=== PATIENT | male | born 1985 | race African-American/Black ===

== ENCOUNTER 2023-03-09 11:21 | Emergency (ER) | payer OTHER ==
[2023-03-09] MEDS ORDERED: METOCLOPRAMIDE HCL INJECTION 10 MG/2 ML VIAL IVPUSH ONE (12:17)
[2023-03-09] MEDS ORDERED: ACETAMINOPHEN 1000 MG/100 ML BAG IVPB ONE (12:17)
[2023-03-09] MEDS ORDERED: SODIUM CHLORIDE 0.9% 500 ML INFUS.BAG IV ONE (12:18)
[2023-03-09 14:24] VITALS: RESP 18; TEMP 98.8
[2023-03-09 15:10] LABS: EOS % 0.3 % (0-4.5); HEMATOCRIT 47.2 % (35.4-49); HEMOGLOBIN 15.5 GM/dL (11.7-16.9); LYMPH % 12.2 % (8-40); MCH 28.5 pg (25.7-33.7); MCHC 32.8 g/dl (32.0-35.9); MEAN PLT VOLUME 8.3 fl (7.5-11.1); MONO % 5.6 % (3.8-10.2); NEUT % 80.9 % (42.8-82.8); RBC 5.43 M/mm3 (4.00-5.60); RDW 15.2 % (11.9-15.9); WHITE BLOOD COUNT 8.6 K/mm3 (4.0-10.0)
[2023-03-09] MEDS ORDERED: METOCLOPRAMIDE HCL INJECTION 10 MG/2 ML VIAL ONE (15:20)
[2023-03-09] MEDS ORDERED: ACETAMINOPHEN INJECTION 100 ML IVPB ONE (15:20)
[2023-03-09 15:25] LABS: PLATELET COUNT 371 10^3/uL (134-434); POTASSIUM 4.3 mmol/L (3.5-5.1)
[2023-03-09 15:27] LABS: BLOOD UREA NITROGEN 12.4 mg/dL (7-18); CALCIUM 9.5 mg/dL (8.5-10.1)
[2023-03-09 15:28] LABS: ALBUMIN 3.9 g/dl (3.4-5.0)
[2023-03-09 15:31] LABS: CREATININE 0.8 mg/dL (0.55-1.3)
[2023-03-09 15:32] LABS: BILIRUBIN,TOTAL 0.3 mg/dL (0.2-1); TOT PROT 10.8 g/dl (6.4-8.2)
[2023-03-09] MEDS ORDERED: PROCHLORPERAZINE INJECTION 10 MG/2 ML VIAL IM ONE (18:18)
[2023-03-09] MEDS ORDERED: PROCHLORPERAZINE INJECTION 10 MG/2 ML VIAL ONE (20:02)
[2023-03-09] MEDS ORDERED: KETOROLAC TROMETHAMINE 30 MG/1 ML VIAL IM ONE (21:23)
[2023-03-09] MEDS ORDERED: KETOROLAC TROMETHAMINE 30 MG/1 ML VIAL ONE (22:06)
[2023-03-09 22:39] VITALS: BP 124/66; PULSE 51
== END 2023-03-10 06:06 | disposition home or self-care (01) ==
LOC: JER 11:21
PROC: 3E033NZ Introduction of Analgesics, Hypnotics, Sedatives into Peripheral Vein, Percutaneous Approach (ICD-10-PCS; principal; 2023-03-09)
PROC: 3E033GC Introduction of Other Therapeutic Substance into Peripheral Vein, Percutaneous Approach (ICD-10-PCS; 2023-03-09)
PROC: 3E023GC Introduction of Other Therapeutic Substance into Muscle, Percutaneous Approach (ICD-10-PCS; 2023-03-09)
DX: R51.9 Headache, unspecified (principal); H53.71 Glare sensitivity
CPT/HCPCS: 36415; 70260-TC-FY; 70450-TC; 71046-TC-FY; 74019-TC-FY; 80053; 85025; 93005; 93010; 96372; 96374; 96375; 99285-25

== ENCOUNTER 2023-03-11 00:51 | Inpatient (IN) | payer OTHER ==
[2023-03-11 01:03] VITALS: BMI 41.0
[2023-03-11] MEDS ORDERED: SODIUM CHLORIDE 1,000 ML IV STA (01:44)
[2023-03-11] MEDS ORDERED: ACETAMINOPHEN 1000 MG/100 ML BAG IVPB ONE (01:46)
[2023-03-11] MEDS ORDERED: KETOROLAC TROMETHAMINE 30 MG/1 ML VIAL IVPUSH ONE (01:46)
[2023-03-11] MEDS ORDERED: ACETAMINOPHEN INJECTION 100 ML IVPB ONE (01:48)
[2023-03-11] MEDS ORDERED: KETOROLAC TROMETHAMINE 30 MG/1 ML VIAL ONE (01:48)
[2023-03-11 03:20] LABS: POTASSIUM 5.5 mmol/L (3.5-5.1)
[2023-03-11 03:23] LABS: ALBUMIN 3.4 g/dl (3.4-5.0); BLOOD UREA NITROGEN 12.7 mg/dL (7-18); CALCIUM 9.1 mg/dL (8.5-10.1)
[2023-03-11 03:28] LABS: BILIRUBIN,TOTAL 0.5 mg/dL (0.2-1)
[2023-03-11 03:30] LABS: BASO % 0.4 % (0-2.0); EOS % 0.1 % (0-4.5); HEMATOCRIT 47.2 % (35.4-49); LYMPH % 9.6 % (8-40); MCH 28.9 pg (25.7-33.7); MCHC 33.8 g/dl (32.0-35.9); MEAN CELL VOLUME 85.5 fl (80-96); MEAN PLT VOLUME 8.5 fl (7.5-11.1); MONO % 6.6 % (3.8-10.2); NEUT % 83.3 % (42.8-82.8); PLATELET COUNT 340 10^3/uL (134-434); RBC 5.52 M/mm3 (4.00-5.60); RDW 16.2 % (11.9-15.9); WHITE BLOOD COUNT 11.2 K/mm3 (4.0-10.0)
[2023-03-11] MEDS ORDERED: METOCLOPRAMIDE HCL INJECTION 10 MG/2 ML VIAL IVPUSH ONE (05:56)
[2023-03-11] MEDS ORDERED: METOCLOPRAMIDE HCL INJECTION 10 MG/2 ML VIAL ONE (06:04)
[2023-03-11] MEDS ORDERED: DOCUSATE SODIUM 100 MG CAPSULE (FP) PO PRN (06:20)
[2023-03-11 07:20] LABS: MAGNESIUM 2.3 mg/dL (1.8-2.4)
[2023-03-11 07:24] LABS: PHOSPHOROUS 4.8 mg/dL (2.5-4.9)
[2023-03-11] MEDS ORDERED: ACETAMINOPHEN 1000 MG/100 ML BAG IVPB PRN (12:00)
[2023-03-11] MEDS ORDERED: KETOROLAC TROMETHAMINE 15 MG/ML VIAL IVPUSH PRN (12:30)
[2023-03-11] MEDS: ACETAMINOPHEN/CAFFEINE/BUTALBITAL 1 TAB PO PRN (14:25)
[2023-03-12] MEDS: ACETAMINOPHEN/CAFFEINE/BUTALBITAL 1 TAB PO PRN ×2 (05:42→15:43)
[2023-03-12 09:10] LABS: BASO % 0.7 % (0-2.0); EOS % 0.9 % (0-4.5); HEMOGLOBIN 14.4 GM/dL (11.7-16.9); LYMPH % 17.7 % (8-40); MCH 28.5 pg (25.7-33.7); MCHC 32.8 g/dl (32.0-35.9); MEAN PLT VOLUME 7.8 fl (7.5-11.1); MONO % 8.5 % (3.8-10.2); NEUT % 72.2 % (42.8-82.8); PLATELET COUNT 348 10^3/uL (134-434); RBC 5.06 M/mm3 (4.00-5.60); RDW 15.1 % (11.9-15.9); WHITE BLOOD COUNT 8.2 K/mm3 (4.0-10.0)
[2023-03-12] MEDS: LISINOPRIL 20 MG TABLET PO SCH (09:21)
[2023-03-12 09:25] LABS: POTASSIUM 3.5 mmol/L (3.5-5.1)
[2023-03-12 09:28] LABS: CALCIUM 8.8 mg/dL (8.5-10.1)
[2023-03-12 09:29] LABS: BLOOD UREA NITROGEN 13.5 mg/dL (7-18)
[2023-03-12 09:32] LABS: CREATININE 0.9 mg/dL (0.55-1.3)
[2023-03-12] MEDS ORDERED: NORTRIPTYLINE HCL 25 MG CAPSULE PO ONE (15:49)
[2023-03-12] MEDS: ATORVASTATIN CA 20 MG TABLET (FP) PO SCH (22:46)
[2023-03-12] MEDS: NORTRIPTYLINE HCL 25 MG CAPSULE PO SCH (22:51)
[2023-03-12] MEDS: ACETAMINOPHEN 325 MG TABLET (FP) PO PRN (22:51)
[2023-03-13] MEDS: LISINOPRIL 20 MG TABLET PO SCH (09:20)
[2023-03-13] MEDS: NORTRIPTYLINE HCL 25 MG CAPSULE PO SCH ×2 (09:20→21:23)
[2023-03-13] MEDS: ACETAMINOPHEN/CAFFEINE/BUTALBITAL 1 TAB PO PRN ×3 (09:21→23:08)
[2023-03-13] MEDS: ATORVASTATIN CA 20 MG TABLET (FP) PO SCH (21:23)
[2023-03-14] MEDS: ACETAMINOPHEN/CAFFEINE/BUTALBITAL 1 TAB PO PRN (08:08)
[2023-03-14] MEDS: NORTRIPTYLINE HCL 25 MG CAPSULE PO SCH ×2 (09:11→21:27)
[2023-03-14] MEDS: LISINOPRIL 20 MG TABLET PO SCH (09:11)
[2023-03-14] MEDS: ATORVASTATIN CA 20 MG TABLET (FP) PO SCH (21:26)
[2023-03-14] MEDS ORDERED: ACETAMINOPHEN/CAFFEINE/BUTALBITAL 1 TAB PO ONE (23:01)
[2023-03-15] MEDS: ACETAMINOPHEN 325 MG TABLET (FP) PO PRN ×2 (09:22→16:23)
[2023-03-15] MEDS: NORTRIPTYLINE HCL 25 MG CAPSULE PO SCH ×2 (09:23→21:15)
[2023-03-15] MEDS: LISINOPRIL 20 MG TABLET PO SCH (09:23)
[2023-03-15] MEDS: ATORVASTATIN CA 20 MG TABLET (FP) PO SCH (21:15)
[2023-03-16] MEDS: LISINOPRIL 20 MG TABLET PO SCH (09:16)
[2023-03-16] MEDS: NORTRIPTYLINE HCL 25 MG CAPSULE PO SCH ×2 (09:21→21:32)
[2023-03-16] MEDS: ACETAMINOPHEN 325 MG TABLET (FP) PO PRN (13:16)
[2023-03-16] MEDS: SUMAtriptan SUCCINATE 50 MG TABLET PO PRN (17:28)
[2023-03-16] MEDS: ATORVASTATIN CA 20 MG TABLET (FP) PO SCH (21:32)
[2023-03-17] MEDS: ACETAMINOPHEN 325 MG TABLET (FP) PO PRN ×2 (02:27→08:44)
[2023-03-17] MEDS: LISINOPRIL 20 MG TABLET PO SCH (09:15)
[2023-03-17] MEDS: NORTRIPTYLINE HCL 25 MG CAPSULE PO SCH ×2 (09:15→21:22)
[2023-03-17] MEDS: SUMAtriptan SUCCINATE 50 MG TABLET PO PRN ×2 (09:54→21:24)
[2023-03-17] MEDS ORDERED: amLODIPine BESYLATE 10 MG TABLET (FP) PO ONE (10:45)
[2023-03-17] MEDS: ATORVASTATIN CA 20 MG TABLET (FP) PO SCH (21:22)
[2023-03-18] MEDS: LISINOPRIL 20 MG TABLET PO SCH (09:22)
[2023-03-18] MEDS: NORTRIPTYLINE HCL 25 MG CAPSULE PO SCH ×2 (09:22→21:14)
[2023-03-18] MEDS: SUMAtriptan SUCCINATE 50 MG TABLET PO PRN ×2 (09:27→21:57)
[2023-03-18] MEDS: ACETAMINOPHEN 325 MG TABLET (FP) PO PRN (16:09)
[2023-03-18] MEDS: ATORVASTATIN CA 20 MG TABLET (FP) PO SCH (21:14)
[2023-03-19] MEDS: LISINOPRIL 20 MG TABLET PO SCH ×2 (06:46→09:02)
[2023-03-19] MEDS: ACETAMINOPHEN 325 MG TABLET (FP) PO PRN ×2 (06:46→17:39)
[2023-03-19] MEDS: NORTRIPTYLINE HCL 25 MG CAPSULE PO SCH ×2 (09:02→21:29)
[2023-03-19] MEDS: METOPROLOL TARTRATE 25 MG TABLET (FP) PO SCH ×2 (11:56→21:29)
[2023-03-19] MEDS: ATORVASTATIN CA 20 MG TABLET (FP) PO SCH (21:29)
[2023-03-20] MEDS: NORTRIPTYLINE HCL 25 MG CAPSULE PO SCH ×2 (10:39→21:55)
[2023-03-20] MEDS: LISINOPRIL 20 MG TABLET PO SCH (10:39)
[2023-03-20] MEDS: METOPROLOL TARTRATE 25 MG TABLET (FP) PO SCH ×2 (10:39→21:55)
[2023-03-20] MEDS: SUMAtriptan SUCCINATE 50 MG TABLET PO PRN (15:04)
[2023-03-20] MEDS: ATORVASTATIN CA 20 MG TABLET (FP) PO SCH (21:55)
[2023-03-20] MEDS: ACETAMINOPHEN 325 MG TABLET (FP) PO PRN (23:25)
[2023-03-20 23:33] VITALS: RESP 18
[2023-03-21] MEDS: NORTRIPTYLINE HCL 25 MG CAPSULE PO SCH ×2 (10:41→21:26)
[2023-03-21] MEDS: SUMAtriptan SUCCINATE 50 MG TABLET PO PRN ×2 (10:41→22:09)
[2023-03-21] MEDS: METOPROLOL TARTRATE 25 MG TABLET (FP) PO SCH ×2 (10:42→21:26)
[2023-03-21] MEDS: LISINOPRIL 20 MG TABLET PO SCH (10:42)
[2023-03-21] MEDS ORDERED: amLODIPine BESYLATE 10 MG TABLET (FP) PO ONE (12:15)
[2023-03-21] MEDS: ATORVASTATIN CA 20 MG TABLET (FP) PO SCH (21:26)
[2023-03-21] MEDS ORDERED: ACETAMINOPHEN 500 MG TABLET (FP) PO ONE (23:09)
[2023-03-22 01:52] VITALS: BP 161/97; PULSE 104; TEMP 99
[2023-03-22] MEDS ORDERED: amLODIPine BESYLATE 10 MG TABLET (FP) PO SCH (10:00)
== END 2023-03-22 02:08 | disposition short-term general hospital (02) | DRG 103 ==
LOC: JER 00:51 → JERBED 02:03 → J6S 09:17 → OBSVTOIN 03-13 13:00
PROVIDERS: ADMIT Internal Medicine; ATTEND Internal Medicine
DX: G43.509 Persistent migraine aura without cerebral infarction, not intractable, without status migrainosus (principal); Z68.41 Body mass index [BMI] 40.0-44.9, adult; G82.20 Paraplegia, unspecified; I10 Essential (primary) hypertension; G47.00 Insomnia, unspecified; Q05.9 Spina bifida, unspecified; M54.9 Dorsalgia, unspecified; E66.01 Morbid (severe) obesity due to excess calories
CPT/HCPCS: 0241U-QW; 36415; 70450-TC; 70544-TC; 70551-TC; 72050-TC-FY; 80048; 80053; 83735; 84100; 85025; 87635; 93005; 93010; 99285-25; G0378

== ENCOUNTER 2024-05-13 09:02 | Inpatient (IN) | payer OTHER ==
[2024-05-13] MEDS ORDERED: CEFTRIAXONE 1 G/50 ML PREMIX 50 ML IVPB ONE (13:12)
[2024-05-13 13:52] LABS: BASO % 0.6 % (0-2.0); EOS % 3.3 % (0-4.5); HEMATOCRIT 40.4 % (35.4-49); HEMOGLOBIN 13.6 GM/dL (11.7-16.9); LYMPH % 24.7 % (8-40); MCH 29.8 pg (25.7-33.7); MCHC 33.7 g/dl (32.0-35.9); MEAN CELL VOLUME 88.5 fl (80-96); MEAN PLT VOLUME 7.4 fl (7.5-11.1); MONO % 5.5 % (3.8-10.2); NEUT % 65.9 % (42.8-82.8); PLATELET COUNT 468 10^3/uL (134-434); RBC 4.56 M/mm3 (4.00-5.60); WHITE BLOOD COUNT 8.5 K/mm3 (4.0-10.0)
[2024-05-13 14:11] LABS: POTASSIUM 5.4 mmol/L (3.5-5.1)
[2024-05-13 14:14] LABS: ALBUMIN 3.1 g/dl (3.4-5.0); CALCIUM 9.1 mg/dL (8.5-10.1)
[2024-05-13 14:17] LABS: CREATININE 0.8 mg/dL (0.55-1.3)
[2024-05-13 14:18] LABS: BILIRUBIN,TOTAL 0.5 mg/dL (0.2-1); TOT PROT 8.8 g/dl (6.4-8.2)
[2024-05-13 14:32] LABS: ERYTHROCYTE SEDIMENTATION RATE 68 mm/hr (0-10)
[2024-05-13] MEDS: ATORVASTATIN CA 10 MG TABLET (FP) PO SCH (21:10)
[2024-05-13] MEDS: HEPARIN NA (PORCINE) 5,000 UNITS/ML 1ML VIAL SQ SCH (21:10)
[2024-05-13] MEDS: levETIRAcetam 500 MG TABLET (FP) PO SCH (21:11)
[2024-05-13] MEDS: ACETAMINOPHEN 325 MG TABLET (FP) PO PRN (21:11)
[2024-05-13] MEDS: NORTRIPTYLINE HCL 25 MG CAPSULE PO SCH (21:14)
[2024-05-14] MEDS: CEFTRIAXONE 1 G/50 ML PREMIX 50 ML IVPB SCH (09:28)
[2024-05-14] MEDS: amLODIPine BESYLATE 5 MG TABLET (FP) PO SCH (09:28)
[2024-05-14] MEDS: LISINOPRIL 20 MG TABLET PO SCH (09:28)
[2024-05-14] MEDS: COLLAGENASE CLOSTRIDIUM HIST. 30 GRAMS TUBE TP SCH (13:29)
[2024-05-16 09:20] LABS: BASO % 0.8 % (0-2.0); EOS % 2.3 % (0-4.5); HEMATOCRIT 39.1 % (35.4-49); LYMPH % 20.3 % (8-40); MCH 29.6 pg (25.7-33.7); MCHC 33.2 g/dl (32.0-35.9); MEAN CELL VOLUME 89.1 fl (80-96); MEAN PLT VOLUME 7.6 fl (7.5-11.1); NEUT % 70.6 % (42.8-82.8); PLATELET COUNT 389 10^3/uL (134-434); RBC 4.39 M/mm3 (4.00-5.60); WHITE BLOOD COUNT 7.7 K/mm3 (4.0-10.0)
[2024-05-16 09:56] LABS: POTASSIUM 4.3 mmol/L (3.5-5.1)
[2024-05-16 10:04] LABS: BLOOD UREA NITROGEN 13.4 mg/dL (7-18)
[2024-05-16 10:06] LABS: BILIRUBIN,TOTAL 0.4 mg/dL (0.2-1); TOT PROT 8.2 g/dl (6.4-8.2)
[2024-05-16 10:08] LABS: CREATININE 0.7 mg/dL (0.55-1.3)
[2024-05-16 10:10] LABS: CALCIUM 9.2 mg/dL (8.5-10.1)
[2024-05-16] MEDS ORDERED: ACETAMINOPHEN 1000 MG/100 ML BAG IVPB PRN (10:51)
[2024-05-17 10:02] LABS: BASO % 1.1 % (0-2.0); EOS % 2.9 % (0-4.5); HEMATOCRIT 37.7 % (35.4-49); HEMOGLOBIN 12.4 GM/dL (11.7-16.9); LYMPH % 26.3 % (8-40); MCH 29.8 pg (25.7-33.7); MCHC 32.9 g/dl (32.0-35.9); MEAN CELL VOLUME 90.8 fl (80-96); MEAN PLT VOLUME 7.9 fl (7.5-11.1); MONO % 7.5 % (3.8-10.2); NEUT % 62.2 % (42.8-82.8); PLATELET COUNT 337 10^3/uL (134-434); RBC 4.15 M/mm3 (4.00-5.60); RDW 13.8 % (11.9-15.9); WHITE BLOOD COUNT 7.2 K/mm3 (4.0-10.0)
[2024-05-17 11:07] LABS: POTASSIUM 4.3 mmol/L (3.5-5.1)
[2024-05-17 11:11] LABS: CALCIUM 9.2 mg/dL (8.5-10.1)
[2024-05-17 11:12] LABS: ALBUMIN 3.2 g/dl (3.4-5.0); BLOOD UREA NITROGEN 11.2 mg/dL (7-18)
[2024-05-17 11:15] LABS: CREATININE 0.7 mg/dL (0.55-1.3)
[2024-05-17 11:17] LABS: BILIRUBIN,TOTAL 0.3 mg/dL (0.2-1)
[2024-05-17 11:53] LABS: TOT PROT 8.3 g/dl (6.4-8.2)
[2024-05-17] MEDS ORDERED: BUPIVACAINE HCL/PF 0.25% (2.5MG/ML) 10 ML VIAL ONE (12:02)
[2024-05-17] MEDS ORDERED: BUPIVACAINE HCL/PF 0.5% (5MG/ML) 10 ML VIAL ONE (12:03)
[2024-05-17] MEDS ORDERED: BACITRACIN ZINC 15 GM TUBE TOPICAL OINTMENT ONE (12:03)
[2024-05-17] MEDS ORDERED: PROPOFOL 40 ML ONE (12:04)
[2024-05-17] MEDS ORDERED: MIDAZOLAM HCL 2 MG/2 ML SINGLE DOSE VIAL ONE (12:04)
[2024-05-17] MEDS ORDERED: SUCCINYLCHOLINE CHLORIDE 200 MG/10 ML SYRINGE ONE (12:08)
[2024-05-17] MEDS ORDERED: SUGAMMADEX SODIUM 200 MG/2 ML VIAL ONE ×2 (12:31→13:34)
[2024-05-17] MEDS ORDERED: ROCURONIUM BROMIDE 50 MG/5 ML VIAL ONE (12:31)
[2024-05-17] MEDS ORDERED: ONDANSETRON 4 MG/2 ML VIAL IVPUSH PRN ×2 (13:47→14:15)
[2024-05-17] MEDS: LACTATED RINGERS SOLUTION 1,000 ML IV SCH ×2 (14:04→15:06)
[2024-05-17] MEDS ORDERED: ACETAMINOPHEN 325 MG TABLET (FP) PO PRN (14:15)
[2024-05-17] MEDS: levETIRAcetam 500 MG TABLET (FP) PO SCH (21:27)
[2024-05-17] MEDS: ATORVASTATIN CA 10 MG TABLET (FP) PO SCH (21:27)
[2024-05-17] MEDS: NORTRIPTYLINE HCL 25 MG CAPSULE PO SCH (21:28)
[2024-05-18] MEDS: HEPARIN NA (PORCINE) 5,000 UNITS/ML 1ML VIAL SQ SCH (10:27)
[2024-05-18] MEDS: LISINOPRIL 20 MG TABLET PO SCH (10:28)
[2024-05-18] MEDS: amLODIPine BESYLATE 5 MG TABLET (FP) PO SCH (10:28)
[2024-05-18 10:37] VITALS: BMI 53.8
[2024-05-18] MEDS: CEFTRIAXONE 1 G/50 ML PREMIX 50 ML IVPB SCH (10:55)
[2024-05-18] MEDS: ASCORBIC ACID 500 MG TABLET (FP) PO SCH (11:27)
[2024-05-18] MEDS: MULTIVITAMINS (DAILY MVI) TABLET (FP) PO SCH (11:28)
[2024-05-18] MEDS: ZINC SULFATE 220 MG CAPSULE (FP) PO SCH (11:29)
[2024-05-18] MEDS: AMINO ACIDS/PROTEIN HYDROLYS 30 ML LIQUID.PKT PO SCH (11:29)
[2024-05-20 04:54] VITALS: RESP 20
[2024-05-21 02:04] VITALS: BP 112/84; PULSE 85; TEMP 98.4
== END 2024-05-21 11:13 | DRG 571 ==
LOC: JER 09:02 → JERBED 12:37 → J6S 14:27
PROVIDERS: ADMIT Internal Medicine; ATTEND Internal Medicine
PROC: 0JBM0ZZ Excision of Left Upper Leg Subcutaneous Tissue and Fascia, Open Approach (ICD-10-PCS; principal; 2024-05-17 13:10)
DX: L89.323 Pressure ulcer of left buttock, stage 3 (principal); G82.20 Paraplegia, unspecified; Z68.43 Body mass index [BMI] 50.0-59.9, adult; Q05.9 Spina bifida, unspecified; G40.909 Epilepsy, unspecified, not intractable, without status epilepticus; I10 Essential (primary) hypertension; E66.01 Morbid (severe) obesity due to excess calories; Z74.01 Bed confinement status
CPT/HCPCS: 36415; 80053; 82962; 85025; 85651; 86140; 88304-TC; 93005; 93010; 94010; 94760; 97116-GP; 97161-GP; 99285-25; J1644